=== PATIENT | female | born 1965 | race Caucasian/White ===

== ENCOUNTER → 2020-04-13 | Outpatient (CLI) | payer BC ==
--- NOTE | 2020-04-17 11:35 | MM ---
Reason for exam: screening (asymptomatic). History: Patient is postmenopausal. Physical Findings: A clinical breast exam by your physician is recommended on an annual basis and results should be correlated with mammographic findings. MG Screening Mammo w CAD Bilateral CC and MLO view(s) were taken. The breast tissue is heterogeneously dense. This may lower the sensitivity of mammography. There is no discrete abnormality. ASSESSMENT: Negative, BI-RAD 1 RECOMMENDATION: Routine screening mammogram of both breasts in 1 year.
== END | disposition home or self-care (01) ==
LOC: RADMAMWWP 13:01
PROVIDERS: ATTEND Internal Medicine
DX: Z12.31 Encounter for screening mammogram for malignant neoplasm of breast (principal)
CPT/HCPCS: 77067

== ENCOUNTER → 2022-11-25 | Outpatient (CLI) | payer OTHER ==
--- NOTE | 2022-11-25 08:53 | CT ---
EXAMINATION TYPE: CT abdomen w con DATE OF EXAM: 11/25/2022 COMPARISON: 07/10/2014 HISTORY: Patient's physician palpated mass in mid abdomen during annual exam. Pt not experiencing any symptoms. CT DLP: 339.40 mGycm CONTRAST: CT scan of the abdomen is performed with Oral Contrast and with IV Contrast, patient injected with 70 mL of Isovue 300. FINDINGS: LUNG BASES-: No visible nodule. No infiltrate. LIVER/GB: No calcified gallstones. No space occupying hepatic lesion. Biliary tree is of normal ca liber. PANCREAS: No inflammation. No distinct mass. SPLEEN: No splenic enlargement. No lesion seen. ADRENALS: No nodule. No thickening. KIDNEYS/BLADDER: No hydronephrosis. No nephrolithiasis. No distinct renal mass. Urinary bladder g rossly unremarkable. BOWEL: Visualization loops are unremarkable. LYMPH NODES: No greater than 1cm abdominal or pelvic lymph nodes are appreciated. AORTA: No significant abnormality. OSSEOUS STRUCTURES: Lumbar laminectomy changes noted. OTHER: No significant additional abnormality is seen. IMPRESSION: 1. No evidence for mass or acute intra-abdominal process.
--- NOTE | 2022-11-25 18:01 | BD ---
EXAMINATION TYPE: Axial Bone Density DATE OF EXAM: 11/25/2022 COMPARISON: NONE CLINICAL HISTORY: 57 years year old Female. ICD-10 CODE: N951, M899 DISORDER OF BONE Height: 60.7 IN Weight: 142 LBS RISK FACTORS HISTORY OF: Surgery to Spine: L SPINE SURGERY 2005 Active: YES Diet low in dairy products/other sources of calcium: YES Postmenopausal woman: AGE 47 MEDICATIONS: Additional Medications: NONE EXAM MEASUREMENTS: Bone mineral densitometry was performed using the [employer] System. L SPINE SURGERY 2005 Bone mineral density about the R hip (g/cm2): 0.794 Bone mineral density about the L hip (g/cm2): 0.852 T Score values are as follows: -----R Neck: -1.8 -----L Neck: -1.3 -----R Total: -1.8 -----L Total: -0.8 Bone mineral density BASELINE Bone mineral density about the L Wrist (g/cm2): 0.584 T Score values are as follows: -----Dist. R+U: -3.2 -----Prox. R+U: -0.6 -----Radius total: -1.5 Bone mineral density BASELINE FRAX%s: The graph provided illustrates a 8.5 chance for a major osteoporotic fx and a 0.9 chance for the hips probability for fx in 10 years time. IMPRESSION: Osteoporosis (T Score less than -2.5). There is increased fracture risk and therapy is usually indicated based on age. Re-Screen 1-2 years. NOTE: T-SCORE=SD OF THE YOUNG ADULT MEAN.
--- NOTE | 2022-11-26 08:23 | MM ---
Reason for Exam: Screening (asymptomatic). Last mammogram was performed 2 year(s) and 7 month(s) ago. Patient History: Menarche at age 10. First Full-Term at age 21. Postmenopausal. Risk Values: Shameka 5 year model risk: 1.2%. NCI Lifetime model risk: 6.7%. Prior Study Comparison: 04/13/2020 Bilateral Screening Mammogram, [facility]. Tissue Density: The breast tissue is heterogeneously dense. This may lower the sensitivity of mammography. Findings: Analyzed By CAD. There is no suspicious group of microcalcifications or new suspicious mass in either breast. Overall Assessment: Negative, BI-RAD 1 Management: Screening Mammogram of both breasts in 1 year. A clinical breast exam by your physician is recommended on an annual basis and results should be correlated with mammographic findings. Electronically signed and approved by: Jude Whitaker D.O.
== END | disposition home or self-care (01) ==
LOC: RADMAMWWP 06:52
PROVIDERS: ATTEND Family Medicine
DX: Z12.31 Encounter for screening mammogram for malignant neoplasm of breast (principal); M81.0 Age-related osteoporosis without current pathological fracture; M89.9 Disorder of bone, unspecified; R19.01 Right upper quadrant abdominal swelling, mass and lump; Z78.0 Asymptomatic menopausal state
CPT/HCPCS: 77080; 77067; 74160; Q9967

== ENCOUNTER 2023-01-30 11:45 | Day surgery (SDC) | payer OTHER ==
[2023-01-27 16:04] VITALS: BMI 25.6
[~2023-01-30 11:45] MED LIST: LACTATED RINGERS 1,000 ML IV SCH; LIDOCAINE 1% (10MG/ML) FOR IV START INTRADERMA PRN; ONDANSETRON 4 MG/2 ML VIAL IVP PRN
[2023-01-30 12:44] VITALS: RESP 16
[2023-01-30] MEDS ORDERED: PROPOFOL 10 MG/ML 20 ML VIAL IV ONE (13:10)
[2023-01-30] MEDS ORDERED: LIDOCAINE 2% INJ 20 MG/ML (2 ML VIAL) ONE (13:10)
[2023-01-30] MEDS ORDERED: LACTATED RINGERS 1,000 ML IV ONE ×2 (13:10)
--- NOTE | 2023-01-30 13:27 | P.PCN ---
Date of Procedure: 01/30/23 Procedure(s) Performed: BRIEF HISTORY: Patient is a 57-year-old pleasant white female scheduled for an elective colonoscopy as a part of screening for colon cancer. Her last colonoscopy was 11 years ago. PROCEDURE PERFORMED: Colonoscopy. PREOPERATIVE DIAGNOSIS: Screening for colon cancer. IV sedation per Anesthesia. PROCEDURE: After informed consent was obtained, the patient, was brought into the endoscopy unit. IV sedation was administered by Anesthesia under continuous monitoring. Digital rectal examination was normal. Initially the Olympus CF-160 flexible video colonoscope was then inserted in the rectum, gradually advanced into the cecum without any difficulty. Careful examination was performed as the scope was gradually being withdrawn. Ileocecal valve and the appendiceal orifice were visualized and appeared normal. Prep was excellent. Mucosa of the cecum, ascending colon, transverse colon, descending colon, sigmoid colon, and rectum appeared normal. Retroflexion was performed in the rectum and no lesions were seen. The patient tolerated the procedure well. IMPRESSION: Normal-appearing colon from rectum to cecum with no evidence of colorectal neoplasia. RECOMMENDATIONS: Findings of this examination were discussed with the patient as well as his family. She was advised to have a repeat screening colonoscopy in 10 years..
[2023-01-30 13:43] VITALS: BP 117/61; PULSE 58
== END 2023-01-30 14:13 | disposition home or self-care (01) ==
LOC: ORWHC2ENDO 11:45
PROVIDERS: ATTEND Internal Medicine Gastroenterology
DX: Z12.11 Encounter for screening for malignant neoplasm of colon (principal); Z98.890 Other specified postprocedural states; Z88.6 Allergy status to analgesic agent
CPT/HCPCS: 45378

== ENCOUNTER → 2023-02-16 | Outpatient (CLI) | payer OTHER ==
--- NOTE | 2023-02-16 07:27 | CT ---
EXAMINATION TYPE: CT hip LT wo con CT DLP: 571.80 mGycm, Automated exposure control for dose reduction was used. DATE OF EXAM: 02/16/2023 7:05 AM COMPARISON: CT 11/25/2022. 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 Additional coronal and sagittal reformatted imag es and soft tissue and bone window were obtained for review. 3-D reconstruction was created on a [email or web address] workstation. Contrast used: None Oral contrast used: None FINDINGS: Mild osteophyte formation of the acetabulum superiorly. There is no evidence of fracture. J oint spaces are grossly maintained. Increased sclerotic focus within the left iliac bone measuring up to 13 mm, previously 4 mm in 2013. Soft tissues are grossly unremarkable. IMPRESSION: 1. No evidence of fracture. 2. Mild left hip degeneration changes. Consider further evaluation with MRI as clinically indicated. 3. Increased size of sclerotic focus within the left iliac bone compared to 07/10/2014 favored represe nt benign bony island in the absence of history of malignancy.
--- NOTE | 2023-02-16 07:30 | CT ---
EXAMINATION TYPE: CT lumbar spine wo con CT DLP: 474.7 mGycm, Automated exposure control for dose reduction was used. DATE OF EXAM: 02/16/2023 6:56 AM COMPARISON: 11/25/2022 CLINICAL INDICATION:Female, 57 years old with history of M46.08 spinal enthesopathy;, Low back pain TECHNIQUE: Multiple axial images were obtained from the midportion of T11 through the sacroiliac anni nts. Soft tissue and bone windows in coronal and sagittal planes were obtained and reviewed. Contrast used: none. Oral contrast used: none. FINDINGS: Alignment: There are 5 lumbar type vertebral bodies with grade one antral listhesis of L4 on L5. Bone: No evidence of fracture is identified. Mild osteophyte formation changes seen throughout the s pine. Disc heights are grossly maintained. Disc heights are maintained. Degeneration changes througho ut the spine with fixation hardware L5 and S1. Fixation hardware appears intact and in appropriate po sition. Mild degeneration changes of the sacroiliac joints with osteophyte formation. Discs: T12-L1: No spinal canal or neural foraminal stenosis is identified. L1-L2: No spinal canal or neural foraminal stenosis is identified. L2-L3: No spinal canal or neural foraminal stenosis is identified. L3-L4: No spinal canal or neural foraminal stenosis is identified. L4-L5: Fixation hardware with streak artifact limits evaluation at this level. There is disc uncove ring from grade 1 anterolisthesis at this level examination with facet arthropathy results in moderat e spinal canal stenosis. L5-S1: Fixation hardware with streak artifact limits evaluation at this level. Laminectomy changes ar e also present at this level. No spinal canal or neural foraminal stenosis is identified. Other: Nonobstructing right 2 mm calculus. IMPRESSION: 1. No evidence for spinal fracture. 2. Postsurgical changes with hardware intact and in appropriate position. 3. Mild disc degeneration changes throughout the spine. 4. Grade 1 anterolisthesis of L4 and L5 resulting in moderate spinal canal stenosis at L4-L5. 5. Nonobstructing right renal calculus.
== END | disposition home or self-care (01) ==
LOC: RADCTMAIN 06:22
PROVIDERS: ATTEND Family Medicine
DX: N20.0 Calculus of kidney (principal); M16.12 Unilateral primary osteoarthritis, left hip; M51.36 Other intervertebral disc degeneration, lumbar region; M46.08 Spinal enthesopathy, sacral and sacrococcygeal region; M43.16 Spondylolisthesis, lumbar region; G57.02 Lesion of sciatic nerve, left lower limb; M99.73 Connective tissue and disc stenosis of intervertebral foramina of lumbar region
CPT/HCPCS: 72131

== ENCOUNTER → 2024-11-17 | Outpatient (CLI) | payer OTHER ==
--- NOTE | 2024-11-17 14:31 | XR ---
EXAMINATION TYPE: XR Hip Complete LT DATE OF EXAM: 11/17/2024 1:30 PM COMPARISON: None CLINICAL INDICATION: Female, 59 years old with history of M47.816, M54.16, M70.72; PHH, pain TECHNIQUE: XR Hip Complete LT; Frontal and lateral views FINDINGS: No evidence for acute process, joint dislocation or significant soft tissue swelling. IMPRESSION: No acute process. [facility], , 11/17/2024 2:29 PM
--- NOTE | 2024-11-17 14:31 | XR ---
EXAMINATION TYPE: XR lumbar spine 2 or 3V DATE OF EXAM: 11/17/2024 1:30 PM COMPARISON: None CLINICAL INDICATION: Female, 59 years old with history of M47.816, M54.16, M70.72, pain TECHNIQUE: XR lumbar spine 2 or 3V - Frontal, lateral and coned in L5-S1 lateral views of the spine. FINDINGS: No evidence of any acute osseous pathology. No evidence of loss of vertebral body height i s seen. There is grade 2 anterolisthesis of L4 on L5 alignment of the lumbar vertebral bodies. Scatte red disc space narrowing. Multilevel marginal osteophyte formation throughout the visualized spine. T here is facet joint arthropathy throughout the spine. Scattered at least mild neural foraminal stenos is. Hardware L5-S1 appears intact. IMPRESSION: 1. No acute fracture. 2. Mild multilevel disc degeneration. 3. Grade 2 anterolisthesis of L4 on L5 [facility], , 11/17/2024 2:28 PM
== END | disposition home or self-care (01) ==
LOC: RADXRMAIN 13:08
PROVIDERS: ATTEND Nurse Practitioner Family
DX: M47.816 Spondylosis without myelopathy or radiculopathy, lumbar region (principal); M70.72 Other bursitis of hip, left hip; M43.16 Spondylolisthesis, lumbar region; M51.16 Intervertebral disc disorders with radiculopathy, lumbar region
CPT/HCPCS: 72100; 73502

== ENCOUNTER → 2024-11-18 | Outpatient (CLI) | payer OTHER ==
[2024-11-18 15:27] LABS: ALT 21 U/L (8-44); AST 21 U/L (13-35); Albumin 4.1 g/dL (3.8-4.9); Albumin/Globulin Ratio 2.05 Ratio (1.60-3.17); Alkaline Phosphatase 47 U/L (41-126); Blood Urea Nitrogen 24.5 mg/dL (9.0-27.0); Calcium 9.1 mg/dL (8.7-10.3); Carbon Dioxide 28.6 mmol/L (21.6-31.8); Chloride 106 mmol/L (96-109); Chol/HDL Ratio 2.83 Ratio; Glucose 89 mg/dL (70-110); LDL Cholesterol,Calculated 98.6 mg/dL (0.0-131.0); Potassium 4.6 mmol/L (3.5-5.5); Sodium 144 mmol/L (135-145); Total Bilirubin <0.2 mg/dL (0.3-1.2); Total Protein 6.1 g/dL (6.2-8.2); VLDL Calculation 10.02 mg/dL (5.00-40.00)
[2024-11-18 16:45] LABS: Basophils # (A) 0.06 X 10*3/uL (0.00-0.10); Basophils % (A) 1.1 %; Eosinophils # (A) 0.47 X 10*3/uL (0.04-0.35); Eosinophils % (A) 8.5 %; HCT 43.8 % (37.2-46.3); HGB 13.5 g/dL (12.0-15.0); Lymphocytes # (A) 1.38 X 10*3/uL (0.90-5.00); Lymphocytes % (A) 25.1 %; MCH 30.7 pg (27.0-32.0); MCHC 30.8 g/dL (32.0-37.0); MCV 99.5 FL (80.0-97.0); Mean Platelet Volume 9.5 FL (9.5-12.2); Monocytes # (A) 0.45 X 10*3/uL (0.20-1.00); Monocytes % (A) 8.2 %; NRBC Per 100 WBC 0 X 10*3/uL (0.00-0.01); Neutrophils # (A) 3.13 X 10*3/uL (1.80-7.70); Neutrophils % (A) 56.9 %; Platelet Count 313 X 10*3/uL (140-440); RDW 12.7 % (11.5-14.5)
== END | disposition home or self-care (01) ==
LOC: LABWHC1 08:00
PROVIDERS: ATTEND Student in an Organized Health Care Education/Training Program
DX: M70.72 Other bursitis of hip, left hip (principal); M85.80 Other specified disorders of bone density and structure, unspecified site
CPT/HCPCS: 36415; 80053; 80061; 84443; 85025

== ENCOUNTER → 2025-02-07 | Outpatient (CLI) | payer OTHER ==
--- NOTE | 2025-02-07 09:55 | MR ---
EXAMINATION TYPE: MR hip LT wo con DATE OF EXAM: 02/07/2025 7:52 AM COMPARISON: Left hip x-ray November 17, 2024. CT left hip February 16, 2023 CLINICAL INDICATION: Female, 59 years old with history of M87.052 M25.552 M70.62, Lt hip pain, low ba ck pain into josse lower extremities IV Contrast: cc (None if empty) Standard multiplanar, multisequence MRI departmental protocol Multiplanar, multisequence images of the pelvis focusing on left hip were acquired without contrast. FINDINGS: Symmetric mild axial joint space loss and spurring in both hips. Symmetric small joint effu sions bilaterally are favored physiologic. Femoral head shapes are maintained bilaterally. There is n o serpiginous diminished T1 signal to suggest avascular necrosis. No suspicious increased T2 osseous signal identified. There is increased fluid signal at the level of the greater trochanters bilaterall y more prominent in the left hip. Muscle bulk is maintained bilaterally. No groin hernia or adenopath y is seen. There is 1.2 cm low dense lesion in the deep left acetabulum corresponding to nonspecific sclerotic focus on prior CT favoring benign bone island. Artifact from surgical change in the lower lumbar spine is present. No free fluid in the pelvis. No a bnormal bowel dilatation. IMPRESSION: Mild degenerative changes of both hips are present. There is significant insertional tendinosis/parti al tearing at level of the greater trochanter in the left hip likely accounting for patient's clinica l symptoms. [facility], , 02/07/2025 9:53 AM
== END | disposition home or self-care (01) ==
LOC: RADMRIMAIN 06:45
PROVIDERS: ATTEND Orthopaedic Surgery
DX: M87.052 Idiopathic aseptic necrosis of left femur (principal); M70.62 Trochanteric bursitis, left hip; M16.0 Bilateral primary osteoarthritis of hip

== ENCOUNTER → 2025-02-07 | Outpatient (CLI) | payer OTHER ==
--- NOTE | 2025-02-07 09:40 | MR ---
EXAMINATION TYPE: MR lumbar spine wo con DATE OF EXAM: 02/07/2025 COMPARISON: Lumbar spine x-ray November 17, 2024. Lumbar spine CT February 16, 2023 HISTORY: Lt hip pain, low back pain into josse lower extremities TECHNIQUE: Multiplanar, multisequence imaging of the lumbar spine is performed without IV contrast. FINDINGS: Sagittal images of the lumbar spine show vertebral body heights to remain satisfactory. The re is susceptibility artifact from posterior fusion hardware bilaterally at the L5-S1 level and metal lic disc material. Some ossific fusion at the L5-S1 level is present There is grade 1 anterolisthesis L4 on L5. There is multilevel disc desiccation superior to L5 level with moderate posterior height l oss at the L4-L5 level. The conus medullaris is normal in position and signal ending inferior L1 leve l. The bone marrow signal intensity is within normal limits above L5 level. Axial images show T12-L1 and L1-L2 levels to appear within normal limits. Axial images at L2-L3 level shows tiny right paracentral disc protrusion minimally effaces the anteri or thecal sac. Axial images at L3-L4 level with [id number] facet arthropathy with some effacement of the left posterolateral thecal sac. No significant posterior disc herniation. Axial images at the L4-L5 levels with spondylolisthesis and artifact from postsurgical change. There is moderate broad-based posterior disc protrusion mildly effaces the anterior thecal sac. There is mi [id number] bilateral inferior neural foraminal narrowing. Axial images at the L5-S1 level show artifact from surgical change. There is posterior decompression at L5 level. Bilateral neural foramina are likely patent with some artifact degradation. Spinal canal is preserved. Paraspinal muscle bulk is maintained. IMPRESSION: Postsurgical change at the lumbosacral junction redemonstrated. Successful posterior deco mpression noted. There is persists stable spondylolisthesis at L4-L5 level. Most prominent degenerati ve change is seen at L4-L5 level as detailed above [facility], , 02/07/2025 9:38 AM
== END | disposition home or self-care (01) ==
LOC: RADMRIMAIN 06:51
PROVIDERS: ATTEND Orthopaedic Surgery Orthopaedic Surgery of the Spine
DX: M51.16 Intervertebral disc disorders with radiculopathy, lumbar region (principal); M48.062 Spinal stenosis, lumbar region with neurogenic claudication; M47.26 Other spondylosis with radiculopathy, lumbar region; M43.16 Spondylolisthesis, lumbar region; Z98.890 Other specified postprocedural states
CPT/HCPCS: 72148

== ENCOUNTER → 2025-02-17 | Outpatient (CLI) | payer OTHER ==
--- NOTE | 2025-02-20 07:59 | MM ---
Reason for Exam: Screening (asymptomatic). Last mammogram was performed 2 year(s) and 3 month(s) ago. Patient History: Menarche at age 10. First Full-Term at age 21. Postmenopausal. Risk Values: Shameka 5 year model risk: 1.3%. NCI Lifetime model risk: 6.4%. Prior Study Comparison: 04/13/2020 Bilateral Screening Mammogram, [facility]. 11/25/2022 Bilateral MG screening mammo w CAD, [facility]. Tissue Density: The breasts are heterogeneously dense, which may obscure small masses. Findings: Analyzed By CAD. There is no suspicious group of microcalcifications or new suspicious mass in either breast. Overall Assessment: Negative, BI-RAD 1 Management: Screening Mammogram of both breasts in 1 year. . Patient should continue monthly self-breast exams. A clinical breast exam by your physician is recommended on an annual basis. This exam should not preclude additional follow-up of suspicious palpable abnormalities. Note on Shameka scores and lifetime risk: 1. A Shameka score greater than 3% is considered moderate risk. If this is the case, consider specialist referral to assess eligibility for a risk reducing agent. 2. If overall lifetime risk for the development of breast cancer is 20% or higher, the patient may qualify for future screening with alternating mammogram and breast MRI. [facility], , 02/20/2025 7:56 AM. Electronically signed and approved by: Chapin Castellano M.D. Radiologis
== END | disposition home or self-care (01) ==
LOC: RADMAMWWP 16:38
PROVIDERS: ATTEND Student in an Organized Health Care Education/Training Program
DX: Z12.31 Encounter for screening mammogram for malignant neoplasm of breast (principal); R92.333 Mammographic heterogeneous density, bilateral breasts; Z78.0 Asymptomatic menopausal state
CPT/HCPCS: 77067

== ENCOUNTER → 2025-03-17 | Outpatient (CLI) | payer OTHER ==
--- NOTE | 2025-03-17 07:56 | BD ---
EXAMINATION TYPE: Axial Bone Density DATE OF EXAM: 03/17/2025 CLINICAL HISTORY: 59 years old Female. ICD-10 CODE: M81.0 AGE RELATED OSTEOPOROSIS , Additional Hist ory: Height: 62 Weight: 152.7 FRAX RISK QUESTIONS: Alcohol (3 or more units per day): no Family History (Parent hip fracture): no Glucocorticoids (More than 3mos): no (Ex: prednisone, prednisolone, methylprednisolone, dexamethasone, and hydrocortisone). History of Fracture in Adulthood: no Secondary Osteoporosis: 1. Type 1 Diabetes: no 2. Hyperthyroidism: no 3. Menopause before 45: no 4. Malnutrition: no 5. Chronic liver disease: no Rheumatoid Arthritis: no Current Tobacco Use: no RISK FACTORS HISTORY OF: Surgery to Spine/Hip(right/left)/Wrist (right/left): l-spine When: 2005 MEDICATIONS: Osteoporosis Medications: yes Which medication: alendronate How Long: since 2022 EXAM MEASUREMENTS: Bone mineral densitometry was performed using the [email or web address] System. Bone mineral density about the R hip (g/cm2): 0.806 Bone mineral density about the L hip (g/cm2): 0.920 T Score values are as follows: -----R Neck: -1.8 -----L Neck: -1.4 -----R Total: -1.6 -----L Total: -0.7 Z Score values are as follows: -----R Neck: -0.6 -----L Neck: -0.2 -----R Total: -0.7 -----L Total: 0.2 Bone mineral density has: increased 2.0 % since study of: 11.25.2022 Bone mineral density about the L Wrist (g/cm2): 0.633 T Score values are as follows: -----Dist. R+U: -2.1 -----Prox. R+U: 0.1 -----Radius total: -0.7 Z Score values are as follows: -----Dist. R+U: -1.1 -----Prox. R+U: 1.1 -----Radius total: 0.3 Bone mineral density has: increased 7.4 % since study of: 11.25.2022 FRAX%s: The graph provided illustrates a 9.0% chance for a major osteoporotic fx and a 1.0% chance fo r the hips probability for fx in 10 years time. IMPRESSION: Osteopenia (T Score between -2.5 and -1). There is slightly increased risk of fracture and the patient may be considered for treatment. Re-Screen 2-5 years. NOTE: T-SCORE=SD OF THE YOUNG ADULT MEAN. [facility], , 03/17/2025 7:54 AM
== END | disposition home or self-care (01) ==
LOC: RADBDWWP 07:09
PROVIDERS: ATTEND Student in an Organized Health Care Education/Training Program
DX: M81.0 Age-related osteoporosis without current pathological fracture (principal); M85.89 Other specified disorders of bone density and structure, multiple sites
CPT/HCPCS: 77080